=== PATIENT | female | born 1930 | race Caucasian/White ===

== ENCOUNTER → 2017-04-13 | Outpatient (CLI) | payer OTHER ==
[~2017-04-13] MED LIST: AMLO5TAB2 PO; ASPI-515 PO; CLOP75TA PO; CYAN10002 INJ; FOLI-17 PO; NITR0.3T5 SL; PRED1TAB PO; RANI300T PO; SIMV10TA3 PO; VIT-3 PO
== END | disposition home or self-care (01) ==
LOC: CVU 12:23
PROVIDERS: ATTEND Internal Medicine Cardiovascular Disease
DX: I65.23 Occlusion and stenosis of bilateral carotid arteries (principal); I08.1 Rheumatic disorders of both mitral and tricuspid valves; E78.5 Hyperlipidemia, unspecified; I10 Essential (primary) hypertension; I67.9 Cerebrovascular disease, unspecified; I25.2 Old myocardial infarction; Z95.2 Presence of prosthetic heart valve; Z95.0 Presence of cardiac pacemaker
CPT/HCPCS: 93306; 93880